=== PATIENT | female | born 1985 | race American Indian/Alaskan Native ===

== ENCOUNTER 2017-06-07 09:04 | Emergency (ER) | payer OTHER ==
[2017-06-07 09:48] LABS: Anion Gap 17 mmol/L; BUN/Creatinine Ratio 21.42; Blood Urea Nitrogen 15 mg/dL (7-17); Calcium 8.7 mg/dL (8.4-10.2); Carbon Dioxide 24 mmol/L (22-30); Chloride 103.8 mmol/L (98-107); Glucose 67 mg/dL (65-100); Potassium 4.4 mmol/L (3.6-5.0); Sodium 140 mmol/L (137-145)
[2017-06-07 10:04] LABS: Basophils % (Auto) 0.4 % (0.0-1.8); Eosinophils % (Auto) 0.4 % (0.0-4.3); Hematocrit 39.6 % (30.3-42.9); Mean Corpuscular HGB Conc 33 % (30-34); Mean Corpuscular Hemoglobin 29 pg (28-32); Mean Corpuscular Volume 89 fl (79-97); Platelet Count 288 K/mm3 (140-440); Red Blood Count 4.44 M/mm3 (3.65-5.03); Red Cell Distribution Width 13.1 % (13.2-15.2); White Blood Count 7.2 K/mm3 (4.5-11.0)
[2017-06-07 10:25] LABS: Bacteria,Urine 1+ /HPF (Negative); Bilirubin,Urine NEG (Negative); Blood,Urine SM (Negative); Ketones,Urine NEG (Negative); Leukocyte Esterase,Urine SM (Negative); Mucus,Urine FEW /HPF; Nitrite,Urine NEG (Negative); Protein,Urine <15 mg/dL mg/dL (Negative); Urobilinogen,Urine < 2.0 mg/dL (<2.0)
--- NOTE | 2017-06-07 16:14 | Emergency Department Report ---
HPI - General Chief Complaint: Abdominal Pain Time Seen by Provider: 06/07/17 15:53 - HPI HPI: Room 19 The patient is a 31-year-old male presenting with a chief complaint of diarrhea. Patient states last night she ate chicken from [email or web address] at approximate 21:00. Patient states at approximately 03:00 she developed watery diarrhea and occasional nausea and vomiting. Patient states she's had periumbilical abdominal pain. Patient states she has not been on antibiotics recently. Patient denies fever or sick contacts. Patient states she is still having diarrhea but feels better than when she first arrived Location: Gastrointestinal system, see above Duration: Since 03:00 Quality: Diarrhea Severity: Mild Modifying factors: [see above] Context: [see above] Mode of transportation: Unknown ED Past Medical Hx - Past Medical History Hx Hypertension: Yes - Surgical History Past Surgical History?: No - Family History Family history: no significant - Social History Smoking Status: Never Smoker Substance Use Type: None - Medications Home Medications: Home Medications Medication Instructions Recorded Confirmed Last Taken Type Diphenoxylate/Atropine [Lomotil] 2 tab PO QID PRN #20 tablet 06/07/17 Unknown Rx Famotidine [Pepcid] 20 mg PO BID #20 tablet 06/07/17 Unknown Rx Promethazine [Phenergan TAB] 25 mg PO Q6HR PRN #20 tab 06/07/17 Unknown Rx Promethazine [Phenergan] 25 mg [place] Q6HR PRN #5 supp.rect 06/07/17 Unknown Rx traMADol [Ultram] 50 mg PO Q6HR PRN #14 tablet 06/07/17 Unknown Rx ED Review of Systems ROS: Stated complaint: STOMACH VIRUS Other details as noted in HPI Comment: All other systems reviewed and negative Constitutional: denies: fever Eyes: denies: eye pain, eye discharge, vision change ENT: denies: ear pain, throat pain Respiratory: denies: cough, shortness of breath, wheezing Cardiovascular: denies: chest pain, palpitations Endocrine: no symptoms reported Gastrointestinal: abdominal pain, nausea, vomiting, diarrhea. denies: constipation Genitourinary: denies: urgency, dysuria, discharge Musculoskeletal: denies: back pain, joint swelling, arthralgia Skin: denies: rash, lesions Neurological: denies: headache, weakness, paresthesias Psychiatric: denies: anxiety, depression Hematological/Lymphatic: denies: easy bleeding, easy bruising Physical Exam - Physical Exam Vital Signs: Vital Signs 06/07/17 06/07/17 06/07/17 09:08 15:51 15:53 Temperature 98.2 F 98.4 F Pulse Rate 78 73 Respiratory 16 16 Rate Blood Pressure 159/117 Blood Pressure 165/108 [Left] O2 Sat by Pulse 100 100 100 Oximetry Physical Exam: GENERAL: The patient is well-developed well-nourished female lying on stretcher not appearing to be in acute distress. [] HEENT: Normocephalic. Atraumatic. Extraocular motions are intact. Patient has moist mucous membranes. NECK: Supple. Trachea midline CHEST/LUNGS: Clear to auscultation. There is no respiratory distress noted. HEART/CARDIOVASCULAR: Regular. There is no tachycardia. There is no gallop rub or murmur. ABDOMEN: Abdomen is soft, with mild discomfort to palpation in the epigastric region. There is no rebound or guarding. There is no tenderness elsewhere in the abdomen. Patient has normal bowel sounds. There is no abdominal distention. SKIN: There is no rash. There is no edema. There is no diaphoresis. NEURO: The patient is awake, alert, and oriented. The patient is cooperative. The patient has normal speech MUSCULOSKELETAL: There is no evidence of acute injury. ED Course Vital Signs 06/07/17 06/07/17 06/07/17 09:08 15:51 15:53 Temperature 98.2 F 98.4 F Pulse Rate 78 73 Respiratory 16 16 Rate Blood Pressure 159/117 Blood Pressure 165/108 [Left] O2 Sat by Pulse 100 100 100 Oximetry ED Medical Decision Making - Lab Data Result diagrams: 06/07/17 09:16 06/07/17 09:16 Laboratory Tests 06/07/17 06/07/17 06/07/17 09:16 09:16 09:50 WBC 7.2 RBC 4.44 Hgb 13.0 Hct 39.6 MCV 89 MCH 29 MCHC 33 RDW 13.1 L Plt Count 288 Lymph % (Auto) 38.0 H [place] % (Auto) 10.0 H Eos % (Auto) 0.4 Baso % (Auto) 0.4 Lymph # 2.8 [place] # 0.7 Eos # 0.0 Baso # 0.0 Seg Neutrophils % 51.2 Seg Neutrophils # 3.7 Sodium 140 Potassium 4.4 Chloride 103.8 Carbon Dioxide 24 Anion Gap 17 BUN 15 Creatinine 0.7 Estimated GFR > 60 BUN/Creatinine Ratio 21.42 Glucose 67 Calcium 8.7 Total Bilirubin Direct Bilirubin Indirect Bilirubin AST ALT Alkaline Phosphatase Total Protein Albumin Albumin/Globulin Ratio Lipase Urine Color Yellow Urine Turbidity Clear Urine pH 5.0 Ur Specific [place] 1.024 Urine Protein <15 mg/dl Urine Glucose (UA) Neg Urine Ketones Neg Urine Blood Sm Urine Nitrite Neg Ur Reducing Substances Not Reportable Urine Bilirubin Neg Urine Ictotest Not Reportable Urine Urobilinogen < 2.0 Ur Leukocyte Esterase Sm Urine WBC (Auto) 2.0 Urine RBC (Auto) 1.0 U Epithel Cells (Auto) 5.0 Urine Bacteria (Auto) 1+ Urine Mucus Few Urine HCG, Qual 06/07/17 06/07/17 09:55 16:01 WBC RBC Hgb Hct MCV MCH MCHC RDW Plt Count Lymph % (Auto) [place] % (Auto) Eos % (Auto) Baso % (Auto) Lymph # [place] # Eos # Baso # Seg Neutrophils % Seg Neutrophils # Sodium Potassium Chloride Carbon Dioxide Anion Gap BUN Creatinine Estimated GFR BUN/Creatinine Ratio Glucose Calcium Total Bilirubin < 0.20 Direct Bilirubin < 0.2 Indirect Bilirubin 0.0 AST 17 ALT 11 Alkaline Phosphatase 100 Total Protein 7.9 Albumin 3.6 L Albumin/Globulin Ratio 0.8 Lipase 38 Urine Color Urine Turbidity Urine pH Ur Specific [place] Urine Protein Urine Glucose (UA) Urine Ketones Urine Blood Urine Nitrite Ur Reducing Substances Urine Bilirubin Urine Ictotest Urine Urobilinogen Ur Leukocyte Esterase Urine WBC (Auto) Urine RBC (Auto) U Epithel Cells (Auto) Urine Bacteria (Auto) Urine Mucus Urine HCG, Qual Negative - Differential Diagnosis gastroenteritis, pancreatitis, gastritis, Critical care attestation.: If time is entered above; I have spent that time in minutes in the direct care of this critically ill patient, excluding procedure time. ED Disposition Clinical Impression: Acute gastroenteritis, Nausea vomiting and diarrhea Disposition: TO HOME OR SELFCARE Is pt being admited?: No Does the pt Need Aspirin: No Condition: Stable Instructions: Acute Nausea and Vomiting (ED), Abdominal Pain (ED) Additional Instructions: Return to the emergency department immediately should you develop worsening symptoms, fever, inability to tolerate food or liquid or any other concerns. Prescriptions: Diphenoxylate/Atropine [Lomotil] 2 tab PO QID PRN #20 tablet PRN Reason: Diarrhea Famotidine [Pepcid] 20 mg PO BID #20 tablet Promethazine [Phenergan TAB] 25 mg PO Q6HR PRN #20 tab PRN Reason: Nausea Promethazine [Phenergan] 25 mg [place] Q6HR PRN #5 supp.rect PRN Reason: Vomiting traMADol [Ultram] 50 mg PO Q6HR PRN #14 tablet PRN Reason: Pain Referrals: PRIMARY CARE, [Primary Care Provider] - 3-5 Days HENRY COLEY MD [Staff Physician] - 3-5 Days (Dr. Coley is a primary physician. Please follow up with him to be established as a patient) NICOLE RAMOS MD [Staff Physician] - 3-5 Days (Dr. Ramos is a log turner. Please follow up with him for further evaluation) Time of Disposition: 17:02
[2017-06-07 16:50] LABS: Alanine Aminotransferase 11 units/L (7-56); Albumin 3.6 g/dL (3.9-5); Albumin/Globulin Ratio 0.8 %; Alkaline Phosphatase 100 units/L (35-129); Bilirubin,Total < 0.20 mg/dL (0.1-1.2); Lipase 38 units/L (13-60); Total Protein 7.9 g/dL (6.3-8.2)
[2017-06-07 17:00] LABS: Bilirubin,Direct < 0.2 mg/dL (0-0.2)
[2017-06-07 17:41] VITALS: BP 172/95
== END 2017-06-07 17:20 | disposition home or self-care (01) ==
LOC: ED 09:04
DX: K52.9 Noninfective gastroenteritis and colitis, unspecified (principal)
CPT/HCPCS: 36415; 80048; 80074; 81001; 81025; 83690; 85025; 99283

== ENCOUNTER 2017-06-21 19:01 | Emergency (ER) | payer OTHER ==
[2017-06-21] MEDS ORDERED: TYLENOL ONE (23:06)
[2017-06-21] MEDS ORDERED: TYLENOL PO ONE (23:07)
--- NOTE | 2017-06-22 00:30 | Emergency Department Report ---
ED Headache HPI - General Chief Complaint: Headache Stated Complaint: HEADACHE Time Seen by Provider: 06/22/17 00:24 - History of Present Illness Initial Comments: 2 Timing/Duration: other (days ) Quality: achy Head Injury Location: frontal Recent Head Trauma: no recent headache/trauma Modifying Factors: improves with: other (none ) Associated Symptoms: denies: confusion, fatigue, facial pain, fever/chills, flushing, loss of consciousness, nausea/vomiting, nasal congestion, nasal drainage, numbness in legs/feet, rash, seizures, stiff neck, vision changes, weakness Allergies/Adverse Reactions: Allergies No Known Allergies Allergy (Verified 06/21/17 23:14) Home Medications: Ambulatory Orders Diphenoxylate/Atropine [Lomotil] 2 tab PO QID PRN #20 tablet 06/07/17 Famotidine [Pepcid] 20 mg PO BID #20 tablet 06/07/17 Promethazine [Phenergan TAB] 25 mg PO Q6HR PRN #20 tab 06/07/17 Promethazine [Phenergan] 25 mg [place] Q6HR PRN #5 supp.rect 06/07/17 traMADol [Ultram] 50 mg PO Q6HR PRN #14 tablet 06/07/17 Acetaminophen [Acetaminophen TAB] 500 mg PO QID PRN #60 tablet 06/22/17 Fluticasone [Flonase] 1 spray NS QDAY #1 bottle 06/22/17 Loratadine 10 mg PO DAILY #30 tablet 06/22/17 Metoclopramide [Reglan] 10 mg PO TID PRN #28 tab 06/22/17 diphenhydrAMINE [Benadryl CAP] 25 mg PO Q6HR PRN #30 capsule 06/22/17 ED Review of Systems ROS: Stated complaint: HEADACHE Other details as noted in HPI Constitutional: denies: chills, fever Eyes: denies: eye pain, eye discharge, vision change ENT: congestion Respiratory: denies: cough, shortness of breath, wheezing Cardiovascular: denies: chest pain, palpitations Endocrine: no symptoms reported Gastrointestinal: denies: abdominal pain, nausea, diarrhea Genitourinary: denies: urgency, dysuria, discharge Musculoskeletal: denies: back pain, joint swelling, arthralgia Skin: denies: rash, lesions Neurological: headache. denies: weakness, numbness, paresthesias, confusion, vertigo Psychiatric: denies: anxiety, depression Hematological/Lymphatic: denies: easy bleeding, easy bruising ED Past Medical Hx - Past Medical History Previous Medical History?: Yes Hx Hypertension: Yes - Surgical History Past Surgical History?: No - Social History Smoking Status: Never Smoker Substance Use Type: None - Medications Home Medications: Home Medications Medication Instructions Recorded Confirmed Last Taken Type Diphenoxylate/Atropine [Lomotil] 2 tab PO QID PRN #20 tablet 06/07/17 Unknown Rx Famotidine [Pepcid] 20 mg PO BID #20 tablet 06/07/17 Unknown Rx Promethazine [Phenergan TAB] 25 mg PO Q6HR PRN #20 tab 06/07/17 Unknown Rx Promethazine [Phenergan] 25 mg [place] Q6HR PRN #5 supp.rect 06/07/17 Unknown Rx traMADol [Ultram] 50 mg PO Q6HR PRN #14 tablet 06/07/17 Unknown Rx Acetaminophen [Acetaminophen TAB] 500 mg PO QID PRN #60 tablet 06/22/17 Unknown Rx Fluticasone [Flonase] 1 spray NS QDAY #1 bottle 06/22/17 Unknown Rx Loratadine 10 mg PO DAILY #30 tablet 06/22/17 Unknown Rx Metoclopramide [Reglan] 10 mg PO TID PRN #28 tab 06/22/17 Unknown Rx diphenhydrAMINE [Benadryl CAP] 25 mg PO Q6HR PRN #30 capsule 06/22/17 Unknown Rx ED Physical Exam - General Limitations: No Limitations General appearance: alert, in no apparent distress - Head Head exam: Present: atraumatic, normocephalic - Eye Eye exam: Present: normal appearance, PERRL, EOMI Pupils: Present: normal accommodation - ENT ENT exam: Present: mucous membranes moist, TM's normal bilaterally, normal external ear exam - Neck Neck exam: Present: normal inspection, full ROM. Absent: tenderness, lymphadenopathy, thyromegaly - Respiratory Respiratory exam: Present: normal lung sounds bilaterally. Absent: respiratory distress, wheezes, rales, rhonchi, stridor, chest wall tenderness - Cardiovascular Cardiovascular Exam: Present: regular rate, normal rhythm. Absent: systolic murmur, diastolic murmur, rubs, gallop - GI/Abdominal GI/Abdominal exam: Present: soft, normal bowel sounds - Rectal Rectal exam: Present: deferred - Extremities Exam Extremities exam: Present: normal inspection - Back Exam Back exam: Present: normal inspection, full ROM, CVA tenderness (R), muscle spasm - Neurological Exam Neurological exam: Present: alert, oriented X3, CN II-XII intact, normal gait, reflexes normal. Absent: motor sensory deficit - Expanded Neurological Exam Expanded Patient oriented to: Present: person, place, time Speech: Present: fluid speech Cranial nerves: EOM's Intact: Normal, Gag Reflex: Normal, Tongue Deviation: Normal, Nystagmus: Normal, Facial Sensation: Normal Cerebellar function: Finger to Nose: Normal, Heel to [place]: Normal, Romberg: Normal Upper motor neuron: Saleem Neglect: Normal, Pronator Drift: Normal, Babinski Sign : Normal, Sensory Extinction: Normal Sensory exam: Upper Extremity Light Touch: Normal, Upper Extremity Pin Prick: Normal, Upper Extremity Temperature: Normal, UE 2 Point Discrimination: Normal, Lower Extremity Light Touch: Normal, Lower Extremity Pin Prick: Normal, Lower Extremity Temperature: Normal, LE 2 Point Discrimination: Normal Motor strength exam: RUE: 5, LUE: 5, RLE: 5, LLE: 5 DTR: bicep (R): 2+, bicep (L): 2+, tricep (R): 2+, tricep (L): 2+, knee (R): 2+ , knee (L): 2+, ankle (R): 2+, ankle (L): 2+ Best Eye Response (Venita): (4) open spontaneously Best Motor Response (Venita): (6) obeys commands Best Verbal Response (Venita): (5) oriented Venita Total: 15 - Psychiatric Psychiatric exam: Present: normal affect, normal mood - Skin Skin exam: Present: warm, dry, intact, normal color. Absent: rash ED Course Vital Signs 06/21/17 06/21/17 20:12 23:05 Temperature 98.6 F 97.6 F Pulse Rate 79 64 Respiratory 18 20 Rate Blood Pressure 151/107 160/114 O2 Sat by Pulse 100 100 Oximetry ED Medical Decision Making - EKG Data When compared to previous EKG there are: no significant change - Medical Decision Making pt is a 31 y/o aaf with hx o intermittent headache who presents for frontal headache interimittne x 2 days pains is described as sharp aching frontal head pt denies fever no chills no n/v no visual changes, mil cough mild post nasal drip exam: head normcephalic atraumatic midline supple, perrla eomi conjunctivae clear bilat TMs clear bilat, Nose: boggy turbinate erythema , clear post nasal drip pharynx mild erythema no lesion no exudate no swelling no headache pain was 5/10 on arrival 11/13 at this time after po tylenol 1 gm po x 1 , plan dc to self , prn nasaids for pain pt will follow up [facility] primary care doctor as directed, Critical care attestation.: If time is entered above; I have spent that time in minutes in the direct care of this critically ill patient, excluding procedure time. ED Disposition Clinical Impression: Frontal headache Allergic rhinitis Qualifiers: Chronicity: acute Allergic rhinitis trigger: unspecified Allergic rhinitis seasonality: non-seasonal Qualified Code(s): J30.89 - Other allergic rhinitis Disposition: DC-01 TO HOME OR SELFCARE Is pt being admited?: No Does the pt Need Aspirin: No Condition: Good Instructions: Acute Headache (ED) Prescriptions: Acetaminophen [Acetaminophen TAB] 500 mg PO QID PRN #60 tablet PRN Reason: pain diphenhydrAMINE [Benadryl CAP] 25 mg PO Q6HR PRN #30 capsule PRN Reason: Headache Fluticasone [Flonase] 1 spray NS QDAY #1 bottle Loratadine 10 mg PO DAILY #30 tablet Metoclopramide [Reglan] 10 mg PO TID PRN #28 tab PRN Reason: Headache Referrals: PRIMARY CARE,MD [Primary Care Provider] - 3-5 Days Forms: Work/School Release Form(ED) Time of Disposition: 00:45
[2017-06-22 00:57] VITALS: BP 158/110
== END 2017-06-22 00:57 | disposition home or self-care (01) ==
LOC: ED 19:01
DX: R51 Headache (principal); J30.9 Allergic rhinitis, unspecified; I10 Essential (primary) hypertension
CPT/HCPCS: 99282